=== PATIENT | female | born 1980 | race Two or more races ===

== ENCOUNTER 2018-06-19 19:50 | Inpatient (IN) | payer OTHER ==
[2018-06-19 19:54] VITALS: BMI 22.7
[2018-06-19] MEDS ORDERED: Lactated Ringer's 1,000 ML IV ONE (19:54)
[2018-06-19] MEDS ORDERED: Oxytocin 30 UNIT 30 UNITS/500 ML BAG IV ONE (19:56)
[2018-06-19] MEDS ORDERED: Lactated Ringer's 1,000 ML IV SCH (20:00)
[2018-06-19] MEDS ORDERED: OXYTOCIN/0.9 % NS 20 UNIT/1,000 ML BAG IV SCH (20:00)
--- NOTE | 2018-06-19 21:06 | OBADHP ---
Datetime: 06/19/2018 20:22 Admit Comment, IP Provider: 38 yo 39wk with PMH of GDM Hypothyriod, present to [facility] for Inducti on of labor. Otherwise Pt have no other complain, PT denies any vag bleed/discharge/ water gush. Pt d enies contraction. Report + movement. ROS: NEgative except mentioned in HPI PCP Dr Zacarias Allergy: none Med Metformin 500Bid, Synthriod 50 PMH: GDM, Hypothyriod PSH: back surgery OBGYN: None Social : denies smoke, ETOH, Drugs use 20:25 38 yo 39wk with PMH of GDM Hypothyriod, present to [facility] for Induction of labor. Admit to L_D Pt is not in acute distress FHS is reactive Accucheck Q4H LR 1L at 999 LR 1L at 125 Anesthesia on Case Cervedil Discussed with Dr Soren Anderson PGY1 Addendum by Dr. Doty: I have evaluated the patient independently and I agree with the above. Pelvic Type - PN: Not Done Extremities - PN: Normal Abdomen - PN: Normal Back - PN: Normal Breast - PN: Not Done Lungs - PN: Normal Heart - PN: Normal Thyroid - PN: Normal Neurologic - PN: Normal HEENT - PN: Normal General - PN: Normal FHR - Baseline A Provider: 145 Membranes, Provider: Intact Contraction Comments Provider: q 4 mins Comments, ACOG Physical Exam: Pt is not in acute distress Heart no extra heart sound lung clear abd bs+ nontender Gestation - Est Wks by US: 39.0 Vital Signs Provider: Reviewed; Within Normal Limits NICHD Variability Prov Fetus A: Moderate 6-25bpm NICHD Accel Fetus A IP Provider: 15X15 FHR Category Provider Fetus A: Category I Dilatation, Provider: 1 Effacement, Provider: 50 Station, Provider: -2 Genitourinary Exam: Normal DTRs - PN: Normal IP Adm Impression: Term, intrauterine IP Admit Plan: Admit to unit; Initiate labor induction protocol Datetime: 06/19/2018 20:13 IP Chief Complaint: Scheduled induction of labor
[2018-06-19 21:15] VITALS: O2SAT 98
[2018-06-19 21:23] LABS: ALBUMIN 3.9 g/dL (3.5-5.0); ALT/SGPT 22 U/L (9-52); AST/SGOT 26 U/L (14-36); BLOOD UREA NITROGEN 13 mg/dl (7-17); CALCIUM 9.8 mg/dL (8.4-10.2); GFR NON-AFRICAN AMERICAN > 60
--- NOTE | 2018-06-19 21:49 | OBPN ---
Datetime: 06/19/2018 21:44 IP Progress Impression: Normal progression of labor IP Informed Consent Obtain: Vaginal Delivery IP Procedures: Sterile Vag Exam IP Progress Plan: Continue present management Contraction Comments Provider: q 5 mins FHR - Baseline A Provider: 155 IP Progress Note Comment: Patient evalauted, comfortable VE=1/50/-2, cervidil placed FHR = 155 mod gi, +accels, no decels TOCO = ctxning q 5 mins A/P 1. Cervidil placed for induction, pt comfortable, does not want pain medication at this time 2. Will follow up CMP for glucose level 3. CEFM and TOCO Vital Signs Provider: Reviewed; Within Normal Limits NICHD Accel Fetus A IP Provider: 15X15 NICHD Variability Prov Fetus A: Moderate 6-25bpm Dilatation, Provider: 1 Effacement, Provider: 50 Station, Provider: -2 NICHD Decel Fetus A IP Provider: None Datetime: 06/19/2018 20:22 Membranes, Provider: Intact Gestation - Est Wks by US: 39.0 FHR Category Provider Fetus A: Category I
[2018-06-19 22:31] LABS: BASO % 0.4 % (0.0-2.0); EOS # 0.1 K/uL (0.0-0.7); EOS % 0.4 % (0.0-4.0); HEMOGLOBIN 11.7 g/dL (12.0-16.0); LYMPH # 3.1 K/uL (1.0-4.3); LYMPH % 27.2 % (20.0-40.0); MEAN CELL VOLUME 84.2 fl (81.0-99.0); MEAN CORPUSCULAR HEMOGLOBIN 27.9 pg (27.0-31.0); MEAN CORPUSCULAR HGB CONC 33.1 g/dL (33.0-37.0); MEAN PLATELET VOLUME 7.4 fl (7.2-11.7); MONO # 0.6 K/uL (0.0-0.8); MONO % 5.6 % (0.0-10.0); NEUT # 7.5 K/uL (1.8-7.0); NEUT % 66.4 % (50.0-75.0); RBC 4.2 Mil/uL (3.80-5.20); RED CELL DISTRIBUTION WIDTH 14.6 % (11.5-14.5); WHITE BLOOD COUNT 11.3 K/uL (4.8-10.8)
--- NOTE | 2018-06-20 08:02 | OBADHP ---
Datetime: 06/19/2018 21:44 FHR - Baseline A Provider: 155 Contraction Comments Provider: q 5 mins Vital Signs Provider: Reviewed; Within Normal Limits NICHD Variability Prov Fetus A: Moderate 6-25bpm NICHD Accel Fetus A IP Provider: 15X15 NICHD Decel Fetus A IP Provider: None Dilatation, Provider: 1 Effacement, Provider: 50 Station, Provider: -2 Datetime: 06/19/2018 20:13 Admit Comment, IP Provider: 38 yo 39wk with PMH of GDM Hypothyriod, present to [facility] for Inducti on of labor. Otherwise Pt have no other complain, PT denies any vag bleed/discharge/ water gush. Pt d enies contraction. Report + movement. ROS: NEgative except mentioned in HPI PCP Dr Zacarias Allergy: none Med Metformin 500Bid, Synthriod 50 PMH: GDM, Hypothyriod PSH: back surgery OBGYN: None Social : denies smoke, ETOH, Drugs use 20:20 38 yo 39wk with PMH of GDM Hypothyriod, present to [facility] for Induction of labor. Pt is not in acute distress FHS is reactive Admit patient L_D Discussed with Dr Soren Anderson PGY1 Addendum by Dr. Doty: I have evaluated the patient independently and I agree with the above
--- NOTE | 2018-06-20 09:25 | OBPN ---
Datetime: 06/20/2018 09:00 IP Progress Impression: Reassuring heart rate IP Progress Plan: Continue present management; Induction; Cervical Ripening; Anticipate Vaginal Deli very FHR - Baseline A Provider: 140 IP Progress Note Comment: OB Hospitalist on-call. Nuria was admitted for IOL at 39w GDMA2 on Metformin; hypothyroidism (Synthroid)...Started on Cerv loyd. She is walking the halls and feels fine. NICHD Accel Fetus A IP Provider: 15X15 FHR Category Provider Fetus A: Category I NICHD Variability Prov Fetus A: Moderate 6-25bpm NICHD Decel Fetus A IP Provider: None
--- NOTE | 2018-06-20 18:10 | OBPN ---
Datetime: 06/20/2018 18:00 IP Progress Impression: Normal progression of labor; Reassuring heart rate IP Progress Plan: Continue present management; Anesthesia consult Contraction Comments Provider: 2-3m FHR - Baseline A Provider: 130 IP Progress Note Comment: Notiifed at 4:40pm that she was 3cm dilated. she used Nitrous for pain rel ief. Shehas a bladder trimmer present, using birthing ball, and feels fine. She understands that there is also IV sedation/epidural as alternative methods for pain relief. Latnet phase of labor - cont present management NICHD Accel Fetus A IP Provider: 15X15 FHR Category Provider Fetus A: Category I NICHD Variability Prov Fetus A: Moderate 6-25bpm
[2018-06-20] MEDS ORDERED: Lactated Ringer's 1,000 ML IV SCH (18:15)
[2018-06-20] MEDS ORDERED: Oxytocin 30 UNIT 30 UNITS/500 ML BAG IV ONE (18:26)
[2018-06-20] MEDS ORDERED: Fentanyl/Bupivacaine HCl 250 ML EPI ONE (18:39)
[2018-06-20] MEDS ORDERED: Lidocaine 1% Inj (20ml) ONE (18:47)
[2018-06-20] MEDS ORDERED: Benzocaine/Menthol SPRAY TOP PRN ×2 (20:19→21:55)
[2018-06-20] MEDS ORDERED: Oxycodone/Acetaminophen 5/325 mg Tab PO PRN ×2 (20:19→21:55)
--- NOTE | 2018-06-20 23:48 | OBDS ---
DELIVERY PERSONNEL Delivery Doctor: Cristina Zacarias DO Enrollment Coordinator: ECrBecky Resident: Dr. Anderson, PGY1 MATERNAL INFORMATION Delivery Anesthesia: Local Medications in Delivery: Pitocin, Lidocaine Estimated Blood Loss (ml): 100 Placenta Cultured: No Maternal Complications: None Provider Comments: Over intact perinuem of live male . was placed on mother's chris st. Cord clamped and cut by father. Cord blood and Cryocellkit (blood and tissue) obtained. PLacen ta delivered intact spontaneously intact. fluids after infant 150cc/after placenta delivery 250cc/ TOTAL EBL 100cc She remained stable LABOR SUMMARY EDC: 06/26/2018 00:00 No. Babies in Womb: 1 Attempted: No Labor Anesthesia: None LABOR INFORMATION Reason for Induction: Maternal Diabetes Reason for Induction Other: SGA Onset of Labor: 06/20/2018 16:00 Complete Dilatation: 06/20/2018 18:50 Cervical Ripening Agents: Cervidil; Cytotec @ Oxytocin: N/A Group B Beta Strep: Negative Antibiotics # of Doses: 0 Antibiotics Time of Last Dose: 0 Steroids Given: None Reason Steroids Not Administered: Not Applicable MEMBRANES Membranes Rupture Method: Spontaneous Rupture of Membranes: 06/20/2018 16:40 Length of Rupture (hrs): 3.13 Amniotic Fluid Color: Bloody Amniotic Fluid Amount: Scant Amniotic Fluid Odor: Normal STAGES OF LABOR Stage 1 hrs: 2 Stage 1 min: 50 Stage 2 hrs: 0 Stage 2 min: 58 Stage 3 hrs: 0 Stage 3 min: 12 Total Time in Labor hrs: 4 Total Time in Labor min: 0 VAGINAL DELIVERY Episiotomy: None Laceration Extension: Second Degree Laceration Type: Perineal Laceration Repair: Yes Laceration Repair Note: Lidocaine 1% was infiltrated 5cc and perineum repaired with 2.0 Vicryl Rapid e suture Initial Vag Sponge Count: 5 Final Vag Sponge Count: 5 Initial Vag Sharps Count: 2 Final Vag Sharps Count: 2 Sponge Count Correct: Yes Sharps Count Correct: Yes Count Comment: 5 laps 2 suture needles one syringe BABY A INFORMATION Infant Delivery Date/Time: 06/20/2018 19:48 Method of Delivery: Vaginal Born in Route : No : N/A Forceps: N/A Vacuum Extraction: N/A Shoulder Dystocia : No SHOULDER DYSTOCIA BABY A Infant Delivery Date/Time: 06/20/2018 19:48 PRESENTATION/POSITION BABY A Presentation: Cephalic Cephalic Presentation: Vertex Breech Presentation: N/A PLACENTA INFORMATION BABY A Placenta Delivery Time : 06/20/2018 20:00 Placenta Method of Delivery: Spontaneous Placenta Status: Delivered SCORES BABY A Heart Rate 1 min: >100 bpm Resp Effort 1 min: Good Cry Reflex Irritability 1 min: Cough or Sneeze or Pulls Away Muscle Tone 1 min: Active Motion Color 1 min: Body [place], Extremities Blue Resuscitation Effort 1 min: N/A SCORE 1 MIN: 9 Heart Rate 5 min: >100 bpm Resp Effort 5 min: Good Cry Reflex Irritability 5 min: Cough or Sneeze or Pulls Away Muscle Tone 5 min: Active Motion Color 5 min: Body [place], Extremities Blue Resuscitation Effort 5 min: N/A SCORE 5 MIN: 9 INFANT INFORMATION BABY A Gestational Age at Delivery: 39.1 Gestational Status: Term Outcome : Liveborn Condition : Stable Infant Sex: Male IDENTIFICATION/MEDS BABY A ID Band Number: [id number] ID Band Location: Left Leg; Left Arm WEIGHT/LENGTH BABY A Infant Birthweight (gms): 3020 Weight (lb): 6 Infant Weight (oz): 10 CORD INFORMATION BABY A No. Cord Vessels: 3 Nuchal Cord : N/A Nuchal Cord Other: N/A True Knot: N/A Cord pH Baby Arterial: N/A Cord pH Baby Venous: N/A Cord Blood Taken: Yes Banking/Donate Info: [employer] [id number] Suction: Mouth; Nose ASSESSMENT BABY A Complications: None Physical Findings at Delivery: Within Normal Limits Infant Respirations: Appears Normal Dental Chairside Assistant/ALS Called : No Infant Care By: Dr. Shell Transferred To: Remains with Mother
--- NOTE | 2018-06-20 23:49 | OBDS ---
DELIVERY PERSONNEL Delivery Doctor: Cristina Zacarias DO Hydro Sprayer Operator: ECreBcky Resident: Dr. Anderson, PGY1 MATERNAL INFORMATION Delivery Anesthesia: Local Medications in Delivery: Pitocin, Lidocaine Estimated Blood Loss (ml): 100 Placenta Cultured: No Maternal Complications: None Provider Comments: Over intact perinuem of live male . was placed on mother's chris st. Cord clamped and cut by father. Cord blood and Cryocellkit (blood and tissue) obtained. PLacen ta delivered intact spontaneously intact. fluids after infant 150cc/after placenta delivery 250cc/ TOTAL EBL 100cc She remained stable LABOR SUMMARY EDC: 06/26/2018 00:00 No. Babies in Womb: 1 Attempted: No Labor Anesthesia: None LABOR INFORMATION Reason for Induction: Maternal Diabetes Reason for Induction Other: SGA Onset of Labor: 06/20/2018 16:00 Complete Dilatation: 06/20/2018 18:50 Cervical Ripening Agents: Cervidil; Cytotec @ Cervical Ripening Agents: Cervidil Cervical Ripening Agents: Cervidil Cervical Ripening Agents: Cervidil Oxytocin: N/A Group B Beta Strep: Negative Antibiotics # of Doses: 0 Antibiotics Time of Last Dose: 0 Steroids Given: None Reason Steroids Not Administered: Not Applicable MEMBRANES Membranes Rupture Method: Spontaneous Rupture of Membranes: 06/20/2018 16:40 Length of Rupture (hrs): 3.13 Amniotic Fluid Color: Bloody Amniotic Fluid Amount: Scant Amniotic Fluid Odor: Normal STAGES OF LABOR Stage 1 hrs: 2 Stage 1 min: 50 Stage 2 hrs: 0 Stage 2 min: 58 Stage 3 hrs: 0 Stage 3 min: 12 Total Time in Labor hrs: 4 Total Time in Labor min: 0 VAGINAL DELIVERY Episiotomy: None Laceration Extension: Second Degree Laceration Type: Perineal Laceration Repair: Yes Laceration Repair Note: Lidocaine 1% was infiltrated 5cc and perineum repaired with 2.0 Vicryl Rapid e suture Initial Vag Sponge Count: 5 Final Vag Sponge Count: 5 Initial Vag Sharps Count: 2 Final Vag Sharps Count: 2 Sponge Count Correct: Yes Sharps Count Correct: Yes Count Comment: 5 laps 2 suture needles one syringe BABY A INFORMATION Infant Delivery Date/Time: 06/20/2018 19:48 Method of Delivery: Vaginal Method of Delivery: Vaginal Born in Route : No : N/A Forceps: N/A Vacuum Extraction: N/A Shoulder Dystocia : No SHOULDER DYSTOCIA BABY A Infant Delivery Date/Time: 06/20/2018 19:48 PRESENTATION/POSITION BABY A Presentation: Cephalic Cephalic Presentation: Vertex Breech Presentation: N/A PLACENTA INFORMATION BABY A Placenta Delivery Time : 06/20/2018 20:00 Placenta Method of Delivery: Spontaneous Placenta Method of Delivery: Spontaneous Placenta Status: Delivered SCORES BABY A Heart Rate 1 min: >100 bpm Resp Effort 1 min: Good Cry Reflex Irritability 1 min: Cough or Sneeze or Pulls Away Muscle Tone 1 min: Active Motion Color 1 min: Body [place], Extremities Blue Resuscitation Effort 1 min: N/A SCORE 1 MIN: 9 Heart Rate 5 min: >100 bpm Resp Effort 5 min: Good Cry Reflex Irritability 5 min: Cough or Sneeze or Pulls Away Muscle Tone 5 min: Active Motion Color 5 min: Body [place], Extremities Blue Resuscitation Effort 5 min: N/A SCORE 5 MIN: 9 INFORMATION BABY A Gestational Age at Delivery: 39.1 Gestational Status: Term Infant Outcome : Liveborn Infant Condition : Stable Sex: Male Sex: Male IDENTIFICATION/MEDS BABY A ID Band Number: [id number] ID Band Location: Left Leg; Left Arm WEIGHT/LENGTH BABY A Birthweight (gms): 3020 Weight (lb): 6 Infant Weight (oz): 10 CORD INFORMATION BABY A No. Cord Vessels: 3 Nuchal Cord : N/A Nuchal Cord Other: N/A True Knot: N/A Cord pH Baby Arterial: N/A Cord pH Baby Venous: N/A Cord Blood Taken: Yes Banking/Donate Info: [employer] [id number] Suction: Mouth; Nose ASSESSMENT BABY A Infant Complications: None Physical Findings at Delivery: Within Normal Limits Respirations: Appears Normal Blanket Cutter Hand/ALS Called : No Infant Care By: Dr. Shell Transferred To: Remains with Mother
[2018-06-21 06:06] LABS: HEMOGLOBIN 10.2 g/dL (12.0-16.0); MEAN CELL VOLUME 83.9 fl (81.0-99.0); MEAN CORPUSCULAR HEMOGLOBIN 28.2 pg (27.0-31.0); MEAN CORPUSCULAR HGB CONC 33.6 g/dL (33.0-37.0); RBC 3.61 Mil/uL (3.80-5.20); RED CELL DISTRIBUTION WIDTH 14.3 % (11.5-14.5); WHITE BLOOD COUNT 16.1 K/uL (4.8-10.8)
[2018-06-21] MEDS ORDERED: Levothyroxine 50 MCG TAB PO SCH ×2 (06:30)
[2018-06-21] MEDS ORDERED: Oxycodone/Acetaminophen 5/325 mg Tab PO PRN (10:37)
[2018-06-21] MEDS ORDERED: Benzocaine/Menthol SPRAY TOP PRN (10:37)
--- NOTE | 2018-06-21 12:06 | OBPPN ---
Datetime: 06/21/2018 12:03 PP Pain Prov: Within normal limits PP Nausea Prov: Denies PP Flatus Prov: Yes PP Breasts Prov: Not Done PP Heart Prov: Normal PP Lungs Prov: Normal PP Abdomen/Uterus Prov: Normal PP Vulva/Perineum Prov: Not Done PP CVA Tenderness Prov: Normal PP Extremities Prov: Normal PP Impression Prov: Normal progression PP Progress Note Prov: Patient doing well ambulating tolerating diet and voiding without difficulty Vital signs stable afebrile Uterus firm below the umbilicus Extremity no Homans day 1 Ambulate, regular diet, analgesias needed Vital Signs Provider PP: Reviewed
[2018-06-21] MEDS ORDERED: Alum-Mag Hydrox-Simethicone Susp (30 mL) PO PRN (21:45)
[2018-06-22] MEDS ORDERED: Levothyroxine 50 MCG TAB PO SCH (06:30)
[2018-06-22 18:35] VITALS: BP 104/59; PULSE 96; RESP 20; TEMP 98.8
--- NOTE | 2018-06-23 08:16 | OBPPN ---
Datetime: 06/22/2018 08:10 PP Pain Prov: Within normal limits PP Nausea Prov: Denies PP Flatus Prov: Yes PP BM Prov: Yes PP Breasts Prov: Normal PP Heart Prov: Normal PP Lungs Prov: Normal PP Abdomen/Uterus Prov: Normal PP Lochia Prov: Normal PP Vulva/Perineum Prov: Normal PP CVA Tenderness Prov: Normal PP Extremities Prov: Normal PP C/S Incision Prov: Not Applicable PP Progress Prov: Normal PP Comments Phys Exam Prov: Abdomen soft, nontender, nondistended Uterus firm, below umbilicus No deep calf tenderness bilaterally PP Impression Prov: Normal progression PP Plan Prov: Discharge PP Progress Note Prov: day #2 status post , patient recovering well Patient discharged home with instructions Follow up in office in 6 weeks IP PP Procedures: None Vital Signs Provider PP: Reviewed; Within Normal Limits
--- NOTE | 2018-06-23 08:17 | OBDCSUM ---
Datetime: 06/22/2018 11:45 Discharge Instructions, Provider: Routine instructions given Discharge Diagnosis, Provider: Term Delivered Contraception discussed, Prov: Yes
== END 2018-06-22 12:59 | disposition home or self-care (01) | DRG 372 ==
LOC: H.L&D 20:14 → H.OB/GYN 06-20 21:44
PROVIDERS: ADMIT Obstetrics & Gynecology; ATTEND Obstetrics & Gynecology
PROC: 4A1HXCZ Monitoring of Products of Conception, Cardiac Rate, External Approach (ICD-10-PCS; 2018-06-19)
PROC: 10E0XZZ Delivery of Products of Conception, External Approach (ICD-10-PCS; principal; 2018-06-20)
PROC: 0KQM0ZZ Repair Perineum Muscle, Open Approach (ICD-10-PCS; 2018-06-20)
DX: O24.425 Gestational diabetes mellitus in childbirth, controlled by oral hypoglycemic drugs (principal); O99.284 Endocrine, nutritional and metabolic diseases complicating childbirth; E03.9 Hypothyroidism, unspecified; O70.1 Second degree perineal laceration during delivery; Z37.0 Single live birth; Z3A.39 39 weeks gestation of pregnancy; O09.523 Supervision of elderly multigravida, third trimester